=== PATIENT | male | born 1995 | race American Indian/Alaskan Native ===

== ENCOUNTER 2017-07-27 12:32 | Emergency (ER) | payer BC ==
[2017-07-27 13:19] VITALS: BP 118/88
[2017-07-27 13:45] LABS: Hematocrit 48.7 % (35.5-45.6); Hemoglobin 16.5 gm/dl (11.8-15.2); Mean Corpuscular HGB Conc 34 % (32-34); Mean Corpuscular Hemoglobin 31 pg (28-32); Mean Corpuscular Volume 93 fl (84-94); Platelet Count 141 K/mm3 (140-440); Red Blood Count 5.26 M/mm3 (3.65-5.03); Red Cell Distribution Width 13.4 % (13.2-15.2); White Blood Count 7.3 K/mm3 (4.5-11.0)
[2017-07-27 14:06] LABS: Alanine Aminotransferase 17 units/L (7-56); Albumin 4.6 g/dL (3.9-5); Albumin/Globulin Ratio 1.6 %; Alkaline Phosphatase 62 units/L (35-129); Anion Gap 15 mmol/L; BUN/Creatinine Ratio 10; Blood Urea Nitrogen 8 mg/dL (9-20); Calcium 9.4 mg/dL (8.4-10.2); Carbon Dioxide 28 mmol/L (22-30); Glucose 82 mg/dL (75-100); Lipase 22 units/L (13-60); Potassium 3.8 mmol/L (3.6-5.0); Sodium 139 mmol/L (137-145); Total Protein 7.5 g/dL (6.3-8.2)
[2017-07-27 14:41] LABS: Bilirubin,Urine NEG (Negative); Blood,Urine NEG (Negative); Ketones,Urine NEG (Negative); Leukocyte Esterase,Urine NEG (Negative); Mucus,Urine FEW /HPF; Nitrite,Urine NEG (Negative); Protein,Urine <15 mg/dL mg/dL (Negative); Urobilinogen,Urine < 2.0 mg/dL (<2.0)
[2017-07-27 14:43] LABS: Basophils % (Manual) 0 % (0.0-1.8); Blastocytes % (Manual) 0 %; Eosinophils % (Manual) 0 % (0.0-4.3); Platelet Estimate Consistent w Auto; RBC Morphology Normal
[2017-07-27 14:44] LABS: Diff Status Complete
--- NOTE | 2017-07-27 17:08 | Emergency Department Report ---
ED Abdominal Pain HPI - General Chief Complaint: Abdominal Pain Stated Complaint: ABDOMINAL PAIN for 2-3 y Time Seen by Provider: 07/27/17 16:47 Source: patient Mode of arrival: Ambulatory Limitations: No Limitations - History of Present Illness MD Complaint: abdominal pain -: Sudden Location: LLQ, RLQ Radiation: none Migration to: no migration Severity: severe (but stops quickly) Quality: stabbing Consistency: intermittent Improves With: nothing Worsens With: nothing Associated Symptoms: other (homosexual male). denies: nausea, vomiting, diarrhea, fever, chills, constipation, dysuria, hematemesis, hematochezia, melena, hematuria, anorexia, syncope - Related Data Allergies Allergy/AdvReac Type Severity Reaction Status Date / Time No Known Allergies Allergy Verified 07/27/17 13:20 ED Review of Systems ROS: Stated complaint: ABDOMINAL PAIN Other details as noted in HPI Comment: All other systems reviewed and negative Gastrointestinal: abdominal pain. denies: nausea, vomiting, diarrhea, constipation, hematemesis, melena, hematochezia ED Past Medical Hx - Past Medical History Previous Medical History?: No Additional medical history: hiv neg in 11/08 - Surgical History Past Surgical History?: No - Social History Smoking Status: Never Smoker Substance Use Type: None ED Physical Exam - General Limitations: No Limitations ED Course Vital Signs 07/27/17 13:16 Temperature 98.6 F Pulse Rate 84 Respiratory 16 Rate Blood Pressure 118/88 O2 Sat by Pulse 100 Oximetry - Reevaluation(s) Reevaluation #1: 07/27/17 17:17 to er w abd pain b lower quads 3 times starting 3 y ago bm today but small homosex male sex last pm protected no toys or fb no concern st no dysuria no penile dc mom w pt pain gone now abd snt no cva tenderness taking po non toxic nonill appearing ua noted labs noted Reevaluation #2: 07/27/17 18:00 XRAY NOTED DISCUSSED W PT AND MOM GIVEN A/C PAIN FOR YEAR WILL TX W PO OTC MEDS AND MOM WILL FOLLOW UP WITH GI ON DC TAKING PO VSS AMBULATORY ED Medical Decision Making - Lab Data Result diagrams: 07/27/17 13:32 07/27/17 13:32 - Radiology Data Radiology results: report reviewed, image reviewed - Medical Decision Making see note - Differential Diagnosis ro acute abd Critical care attestation.: If time is entered above; I have spent that time in minutes in the direct care of this critically ill patient, excluding procedure time. ED Disposition Clinical Impression: Abdominal pain, Constipation Disposition: TO HOME OR SELFCARE Is pt being admited?: No Does the pt Need Aspirin: No Condition: Stable Instructions: Constipation (ED), High Fiber Diet (ED), Abdominal Pain (ED) Additional Instructions: high fiber diet hydrate well follow up as instructed OVER THE COUNTER MIRALAX IS GOOD FOR DAILY REGULATION TONIGHT DRIP A BOTTLE OF MAG CITRATE AND YOU WILL HAVE BM WITHIN HOURS. Referrals: PRIMARY CARE, [Primary Care Provider] - 3-5 Days HENRIK TOLBERT MD [Staff Physician] - 3-5 Days TONE VO MD [Staff Physician] - 3-5 Days ANISH DE LUNA MD [Staff Physician] - 3-5 Days Time of Disposition: 17:19
--- NOTE | 2017-07-27 19:41 | XRay Report ---
FINAL REPORT EXAM: XR ABDOMEN 2V HISTORY: abd pain TECHNIQUE: Supine and upright views of the abdomen Comparison: None FINDINGS: There is scattered stool and air throughout the colon in a nonobstructive pattern. There is no free air. There are no suspicious calcifications. Imaged lung bases are clear. There are no pleural effusions. IMPRESSION: Unremarkable two-view abdomen. Mild fecal retention right colon.
== END 2017-07-27 18:05 | disposition home or self-care (01) ==
LOC: ED 12:32
DX: R10.31 Right lower quadrant pain (principal); R10.32 Left lower quadrant pain; K59.00 Constipation, unspecified
CPT/HCPCS: 36415; 74020; 80053; 81001; 83690; 85007; 85025; 99284